=== PATIENT | female | born 1965 | race Caucasian/White ===

== ENCOUNTER 2023-10-11 01:17 | Inpatient (IN) | payer BC ==
[2023-10-11 01:35] LABS: #Basophils 0.07 10x3/uL (0.0-0.2); #Eosinphils Less than 0.03 10x3/uL (0.0-0.7); %Basophils 1.3 % (0.0-1.0); %Eosinophils 0.2 % (0.0-10.0); %Lymphocytes 8.6 % (21.0-51.0); %Monocytes 5.2 % (0.0-10.0); %Neutrophils 84.3 % (42.0-75.0); Hematocrit 42.8 % (36.0-47.0); Hemoglobin 13.6 g/dL (12.0-16.0); Mean Corpuscular HGB CONC 31.8 g/dL (32.0-36.0); Mean Corpuscular Hemoglobin 29.1 pg (27.0-31.0); Mean Corpuscular Volume 91.5 fL (78.0-98.0); Mean Platelet Volume 10.4 fL (7.4-10.4); Platelet Count 415 10x3/uL (130-400); RBC Distribution Width 17.4 % (11.5-14.5); Red Blood Cell (RBC) Count 4.68 mill/uL (4.20-5.40)
[2023-10-11 02:19] LABS: ALT (SGPT) 23 U/L (8-55); AST (SGOT) 56 U/L (5-34); Albumin 2.9 g/dL (3.5-5.0); Alkaline Phosphatase 330 U/L (40-110); Anion Gap 15 mmol/L (10-20); BUN (Urea Nitrogen) 14 mg/dL (9.8-20.1); Bilirubin, Total 0.5 mg/dL (0.2-1.2); Calc. Creatinine Clearance 0 mL/min (70-130); Calcium 9.7 mg/dL (7.8-10.44); Carbon Dioxide 23 mmol/L (22-29); Chloride 102 mmol/L (98-107); Estimated GFR 85; Globulin 3.7 g/dL (2.4-3.5); Glucose 183 mg/dL (70-105); Potassium 3.6 mmol/L (3.5-5.1); Protein, Total 6.6 g/dL (6.0-8.3); Sodium 136 mmol/L (136-145)
[2023-10-11] MEDS ORDERED: Ketorolac Tromethamine 30 MG (1 mL) VIAL ONE (03:02)
[2023-10-11] MEDS ORDERED: Morphine 4 MG/ML VIAL ONE (03:02)
[2023-10-11] MEDS ORDERED: Ondansetron PF 4 MG/2 ML Vial ONE ×3 (03:03→14:24)
[2023-10-11] MEDS ORDERED: Ondansetron ODT 4 MG TAB PO PRN (04:24)
[2023-10-11] MEDS ORDERED: Ipratropium/Albuterol 3 ML NEB NEB PRN (04:24)
[2023-10-11] MEDS ORDERED: Acetaminophen 325 MG TAB PO PRN (04:24)
[2023-10-11] MEDS ORDERED: Ondansetron PF 4 MG/2 ML Vial IVP PRN ×2 (04:24→04:45)
[2023-10-11] MEDS ORDERED: hydrALAZINE 20 MG/ML VIAL SLOW IVP PRN (05:02)
[2023-10-11] MEDS: Cyclobenzaprine 10 MG TAB PO PRN (05:56)
[2023-10-11] MEDS: HYDROcodone/Acetaminophen 7.5/325 mg Tablet PO PRN (05:57)
[2023-10-11] MEDS: Lactated Ringer's 1,000 ML IV SCH (05:59)
[2023-10-11] MEDS ORDERED: CEFAZOLIN 2 GM in Sodium Chloride 0.9% 100 ML IVPB SCH (07:30)
[2023-10-11] MEDS: Morphine 4 MG/ML VIAL SLOW IVP PRN (08:18)
[2023-10-11] MEDS: Famotidine 20 MG TAB PO SCH (08:22)
[2023-10-11 08:49] VITALS: BMI 37.8
[2023-10-11] MEDS ORDERED: Iopamidol 370 76% 100 ML VIAL ONE (10:45)
[2023-10-11] MEDS ORDERED: Lorazepam 0.5 MG TAB PO PRN (11:04)
[2023-10-11] MEDS ORDERED: Promethazine HCl 25 MG/ML VIAL IM PRN ×2 (12:16→15:06)
[2023-10-11] MEDS ORDERED: Ondansetron HCl/PF 4 MG/2 ML Vial IVP PRN ×2 (12:16→15:06)
[2023-10-11] MEDS ORDERED: fentaNYL 50 mcg/mL 1 mL Vial ONE ×2 (12:24→16:17)
[2023-10-11] MEDS ORDERED: Midazolam HCl 2 mg/2 ml Vial ONE (12:24)
[2023-10-11] MEDS ORDERED: Ropivacaine 0.5% HCl/PF (150 MG/30 ML VIAL) ONE (12:24)
[2023-10-11] MEDS ORDERED: fentaNYL PF 100 MCG/2 ML SYRINGE ONE (12:26)
[2023-10-11] MEDS ORDERED: Lidocaine 1% PF 5 ML VIAL ONE (12:26)
[2023-10-11] MEDS ORDERED: Dexamethasone 20 MG/5 ML VIAL ONE (12:26)
[2023-10-11] MEDS ORDERED: PROPOFOL 20 ML ONE (12:26)
[2023-10-11] MEDS ORDERED: Lidocaine 2% 6 ML (Jelly) SYR ONE (12:27)
[2023-10-11] MEDS ORDERED: Sodium Chloride 0.9% 100 ML ONE (12:37)
[2023-10-11] MEDS ORDERED: CEFAZOLIN 2 GM VIAL ONE (12:37)
[2023-10-11] MEDS ORDERED: PHENYLEPHRINE-NS 100 MCG/ML 10 ML SYRINGE ONE (13:01)
[2023-10-11] MEDS ORDERED: HYDROmorphone 2 MG/ML VIAL ONE (13:22)
[2023-10-11] MEDS ORDERED: Promethazine HCl 25 MG/ML VIAL ONE (16:38)
[2023-10-11] MEDS: TETANUS, DIPHTHERIA TOX,ADULT (TDVAX) 0.5 ML VIAL IM ONE (17:04)
[2023-10-11] MEDS: Ketorolac Tromethamine 30 MG (1 mL) VIAL IVP PRN (20:55)
[2023-10-11] MEDS: Atorvastatin Calcium 20 MG TAB PO SCH (20:58)
[2023-10-11] MEDS: CEFAZOLIN 2 GM in Sodium Chloride 0.9% 100 ML IVPB SCH (20:58)
[2023-10-12 06:16] LABS: #Basophils Less than 0.03 10x3/uL (0.0-0.2); #Eosinphils Less than 0.03 10x3/uL (0.0-0.7); %Basophils 0.3 % (0.0-1.0); %Lymphocytes 14.6 % (21.0-51.0); %Monocytes 6.8 % (0.0-10.0); Hematocrit 34.4 % (36.0-47.0); Hemoglobin 10.8 g/dL (12.0-16.0); Mean Corpuscular HGB CONC 31.4 g/dL (32.0-36.0); Mean Corpuscular Volume 92.5 fL (78.0-98.0); Mean Platelet Volume 10.7 fL (7.4-10.4); Platelet Count 341 10x3/uL (130-400); RBC Distribution Width 17.9 % (11.5-14.5); Red Blood Cell (RBC) Count 3.72 mill/uL (4.20-5.40)
[2023-10-12 06:31] LABS: Anion Gap 13 mmol/L (10-20); BUN (Urea Nitrogen) 19 mg/dL (9.8-20.1); Calc. Creatinine Clearance 116 mL/min (70-130); Calcium 8.7 mg/dL (7.8-10.44); Carbon Dioxide 26 mmol/L (22-29); Chloride 108 mmol/L (98-107); Estimated GFR 81; Glucose 161 mg/dL (70-105); Potassium 4.5 mmol/L (3.5-5.1); Sodium 142 mmol/L (136-145)
[2023-10-12] MEDS ORDERED: Morphine 4 MG/ML VIAL SLOW IVP PRN (08:39)
[2023-10-12] MEDS ORDERED: LETROZOLE PO SCH (09:00)
[2023-10-12] MEDS ORDERED: RIBOCICLIB SUCCINATE PO SCH (09:00)
[2023-10-12] MEDS ORDERED: [UNRECOGNIZED DRUG - OTHER] PO SCH (09:00)
[2023-10-12] MEDS: Cholecalciferol 1,000 UNITS (25 MCG) TAB PO SCH (09:59)
[2023-10-12] MEDS: Acetaminophen 325 MG TAB PO SCH (10:00)
[2023-10-12] MEDS: Enoxaparin 40 MG (0.4 mL) SYRINGE SC SCH (10:01)
[2023-10-12] MEDS: Anastrozole 1 MG TAB PO SCH (10:01)
[2023-10-12] MEDS: Lisinopril 2.5 MG TAB PO SCH (10:02)
[2023-10-12] MEDS: Morphine 2 MG/ML VIAL SLOW IVP PRN (10:03)
[2023-10-12] MEDS: Cyclobenzaprine 10 MG TAB PO PRN (10:03)
[2023-10-12 11:17] VITALS: BMI 37.8
[2023-10-13] MEDS: Senokot S 8.6-50 MG TAB PO SCH (09:35)
[2023-10-13] MEDS: Polyethylene Glycol 3350 17 GM Packet PO SCH (09:35)
[2023-10-14 07:48] LABS: #Basophils 0.06 10x3/uL (0.0-0.2); %Basophils 2.3 % (0.0-1.0); %Eosinophils 1.9 % (0.0-10.0); %Lymphocytes 29.4 % (21.0-51.0); %Monocytes 6.1 % (0.0-10.0); %Neutrophils 59.5 % (42.0-75.0); Hemoglobin 10.4 g/dL (12.0-16.0); Mean Corpuscular HGB CONC 29.7 g/dL (32.0-36.0); Mean Corpuscular Volume 97.5 fL (78.0-98.0); Mean Platelet Volume 10.3 fL (7.4-10.4); Platelet Count 346 10x3/uL (130-400); RBC Distribution Width 17.8 % (11.5-14.5); Red Blood Cell (RBC) Count 3.59 mill/uL (4.20-5.40)
[2023-10-15] MEDS: Ibuprofen 600 MG TAB PO SCH (15:10)
[2023-10-15] MEDS: Acetaminophen/Codeine 30-300mg Tablet PO PRN (22:01)
[2023-10-17 08:59] VITALS: BP 157/89; TEMP 98.2
== END 2023-10-17 11:22 | disposition home health service (06) | DRG 481 ==
LOC: ERS 01:17 → ERHOLD 04:17 → 2NO 05:47 → SURG A 11:37 → SURG B 17:19
PROVIDERS: ADMIT Student in an Organized Health Care Education/Training Program; ATTEND Student in an Organized Health Care Education/Training Program
PROC: 0QSC04Z Reposition Left Lower Femur with Internal Fixation Device, Open Approach (ICD-10-PCS; principal; 2023-10-11)
DX: C79.51 Secondary malignant neoplasm of bone (principal); C78.7 Secondary malignant neoplasm of liver and intrahepatic bile duct; J90 Pleural effusion, not elsewhere classified; M84.552A Pathological fracture in neoplastic disease, left femur, initial encounter for fracture; E78.5 Hyperlipidemia, unspecified; C50.919 Malignant neoplasm of unspecified site of unspecified female breast; I10 Essential (primary) hypertension; M16.11 Unilateral primary osteoarthritis, right hip; Z96.642 Presence of left artificial hip joint; W18.30XA Fall on same level, unspecified, initial encounter; Z90.710 Acquired absence of both cervix and uterus; Z90.13 Acquired absence of bilateral breasts and nipples; Z98.890 Other specified postprocedural states; Z90.49 Acquired absence of other specified parts of digestive tract
CPT/HCPCS: 36415; 71045; 72170; 80048; 80053; 85025; 88307; 88311; 88341; 88342; 93005; 96374; 96375; C1713; G0390; J1100; J1170; J1650; J1885; J2250; J2270; J2272; J2405; J2550; J2704; J2795; J3010; J3490; J7120; Q9967